=== PATIENT | female | born 1985 | race Caucasian/White ===

== ENCOUNTER → 2019-03-01 10:54 | Outpatient (CLI) | payer OTHER, SELFPAY ==
[2019-03-01 13:03] LABS: T4 Free Direct 0.87 ng/dL (0.76-1.46); Thyroid Stim Hormone (TSH) 1.58 uIU/mL (0.358-3.74)
[2019-03-01 13:21] LABS: Hemoglobin 8.8 g/dl (12.0-15.0); Mean Corp Hgb Conc 28.4 g/gl (32-36); Mean Corpuscular Hgb 18.1 pg (27.0-32.0); Mean Corpuscular Volume 63.9 fL (81-99); RBC Distribution Width CV 17.8 % (11.6-14.6); RBC Distribution Width SD 41.3 fl (35.1-43.9); Red Blood Count 4.85 M/mm3 (4.2-5.4); Scan Indicated on CBC? Y/N YES- FLAGS NOTED; White Blood Count 5.9 K/mm3 (4.4-11.0)
[2019-03-02 12:28] LABS: Thyroid Peroxidase AB 9 IU/mL (0-34)
== END ==
PROVIDERS: Visit Provider Obstetrics & Gynecology
DX: N92.0 Excessive and frequent menstruation with regular cycle (principal)
CPT/HCPCS: 36415; 84439; 84443; 85027; 86376

== ENCOUNTER → 2019-03-30 11:58 | Outpatient (CLI) | payer OTHER, SELFPAY ==
[2019-03-30 12:37] LABS: Hematocrit 34.9 % (37-47); Hemoglobin 10.6 g/dl (12.0-15.0); Mean Corp Hgb Conc 30.4 g/gl (32-36); Mean Corpuscular Hgb 21.9 pg (27.0-32.0); Platelet Count 184 K/mm3 (150-450); Red Blood Count 4.85 M/mm3 (4.2-5.4); White Blood Count 5.3 K/mm3 (4.4-11.0)
[2019-03-30 12:39] LABS: Scan Indicated on CBC? Y/N YES- FLAGS NOTED
[2019-03-30 13:20] LABS: Differential Comment SCANNED
== END ==
PROVIDERS: Visit Provider Obstetrics & Gynecology
DX: N92.0 Excessive and frequent menstruation with regular cycle (principal); Z86.2 Personal history of diseases of the blood and blood-forming organs and certain disorders involving the immune mechanism
CPT/HCPCS: 36415; 85027

== ENCOUNTER 2019-09-24 06:02 | Day surgery (SDC) | payer OTHER, SELFPAY ==
[2019-09-19 17:14] LABS: Hematocrit 31.8 % (37-47); Hemoglobin 8.8 g/dL (12.0-15.0); Mean Corp Hgb Conc 27.7 g/dL (32-36); Mean Corpuscular Hgb 18.8 pg (27.0-32.0); Mean Corpuscular Volume 68.1 fL (81-99); Mean Platelet Vol. 11.8 fl (6.2-12.0); Platelet Count 230 K/mm3 (150-450); RBC Distribution Width SD 40.8 fl (35.1-43.9); Red Blood Count 4.67 M/mm3 (4.2-5.4); White Blood Count 6.6 K/mm3 (4.4-11.0)
[2019-09-19 17:22] LABS: International Normalized Ratio 1.1; Prothrombin Time (Protime)PT. 13.6 SECONDS (11.7-14.9)
[2019-09-19 17:23] LABS: Partial Thromboplast Time 28.4 Seconds (24.1-36.2)
[2019-09-19 18:11] LABS: Creatinine, Serum 0.72 mg/dL (0.55-1.02); EST Glomerular Filtration Rate 99 mL/min (>60); Est Glom Filt Rate - Afr Amer 120 mL/min (>60)
--- NOTE | 2019-09-23 14:36 | PCM.HP.BLA ---
History and Physical Date of Admission: 09/24/19 Surgical History and Physical Nori Rivera, a 33 year old female 2 0 0 0 2, presents for Robotic hysterectomy, bilateral salpingectomy on September 24, 2019 at 7':30. -- Menorrhagia, Blood Loss Anemia, Adnexal Pulling Pain -- Having heavy periods getting worse over the past year. Periods are monthly lasting 5-6 days, LMP 01/30/19. CD 2-4 are the heaviest. Wears a super plus tampon and a pad for overflow, changing every hour apprx 8 x per day; bleeds onto her bed at night. Takes one Midol for cramping once daily. Quarter sized clots heavy days. Apprx a year ago, tried 3 months of an ocp, which made no difference, unsure name of ocp. Intolerant to iron supplement. Hx C/S x 2, BTO. No other abdominal surgeries. Hgb 8.8 g/dl at last visit. Thyroid testing WNL. UTERUS: 10.5 x 7.4 x 6.3 cm.;ENDOMETRIAL ECHO: 0.55 cm and is difficult to delineate from surrounding uterine tissue; RIGHT OVARY: 4.6 x 2.5 x 2.5 cm and is polycystic; LEFT OVARY: 3.6 x 2.3 x 2.9 cm and is polycystic; OTHER PERTINENT FINDINGS: Directly adjacent and lateral to the ovary is a fluid filled structure that is 1.4 cm in width. This appears to be fluid within the Infundibulum of the fallopian tube, as you can trace the structure back to the uterus. Very heavy periods. It is located in the vagina. Severity is getting worse; It is relieved by nothing. Associated signs and symptoms are anemia. Additional comments are: OCP trial unsucessful about a year ago. MEDICATIONS HISTORY: Patient is also takin. Lexapro 20 mg tablet, One tablet by mouth daily 2. omeprazole 40 mg capsule,delayed release, One capsule by mouth once daily ALLERGIES: NKDA Infections - Chicken pox Illnesses - none Accidents - no injuries of consequence Hospitalizations - Childbirth and see surgery Review of Systems: GENERAL - Denies fever, or chills SKIN - Denies skin changes EYES - Denies visual changes EARS - Denies difficulty hearing NOSE - Denies nasal congestion or bleeding MOUTH - Denies sore throat or difficulty swallowing NECK - Denies pain or swelling RESPIRATORY - Denies shortness of breath or wheezing CARDIOVASCULAR - Denies palpitations or chest pain GASTROINTESTINAL - Denies nausea, vomiting, diarrhea, constipation GENITOURINARY - Denies dysuria, frequency of urination, incontinence of urine MUSCULOSKELETAL - Denies joint or muscle pain NEUROLOGICAL - Denies localized numbness or weakness PSYCHIATRIC - Denies depression or anxiety ENDOCRINE - Denies heat or cold intolerance, weight loss or gain HEMATO-IMMUNOLOGIC - Denies excesive bleeding with cuts SOCIAL HISTORY: Alcohol Use - socially Smoking - denies smoking Diet - moderate, balanced diet Lifestyle - low stress lifestyle and Exercise - regular Seat Belt Use - always Employer - [employer] Job Description - Kitchen help Illicit Drug Use - denies use of street drugs Sexual Activity - Residence - lives with Hours Worked - 20 [address]K Spouse-Sig Other Name - Wilfredo Spouse-Sig Other Occupation - [employer] Children Name(s) - Felix Amador (ARNULFO) Control - tubal FAMILY HISTORY: Father: Hypertension. Maternal Grandfather: Heart Disease. Paternal Grandmother: DM II. Paternal Grandfather: of massive heart attack and Heart Disease. MENSTRUAL HISTORY: LMP Known?- DefiniteAmount/Duration - 5-6 DAYS, Regularity - Regular, Frequency - monthly days, LMP - 09/05/19, Age Onset Menarche - 12 PAST PREGNANCIES: Total Pregnancies - 2; Full Term Pregnancies - 2; Premature - 0; Abortions, Induced - 0; Abortions, Spontaneous - 0; Ectopics - 0; Multiple Births - 0; Living Children - 2 SURGICAL HISTORY: 1. 10/07/2009 P C/S ; Dr Patton - FTP 2. 05/26/2012 /BTO ; Lakshmi Patton M.D. - 3. [place] Teeth Removal, 2004 ; - PHYSICAL EXAM BP- 134/84 Sitting, Right arm, regular cuff Weight- 236.16451 lbs Height- 65.25 inch BMI:39.05 CONSTITUTIONAL - NAD, well nourished, and well developed HEENT - Normocephalic, PERRLA, EOMI NECK - no nuchal rigidity EXTREMITIES - No edema or calf tenderness NEUROLOGICAL - Cranial nerves II-XII grossly intact PSYCHIATRIC - alert, oriented to time, place, and person, mood appropriate and affect appropriate External Genital Vagina - non-tender without lesions Urethra/Urethral Meatus - non-tender Bladder - non-tender Vagina - vaginal hoang are pink and moist without loss of rugae and no evidence of atropy Cervix - without cervical motion tenderness and has normal size and features without evident lesions Uterus - mobile, no tenderness and RV RF. Adnexa - clear without masses or tenderness ASSESSMENT/PLAN: 1. Excessive Bleeding In The Premenopausal Period Discussed diff dx of bleeding. Hgb 8.8 g/dl at last visit. Thyroid testing WNL. Advised of all options for treatment: hormonal contraception (States OCP did not help); trial of Liletta IUD ; hysteroscopy D and C endometrial ablation. Brochures given to read and consider; Abnormal Uterine Bleeding; Liletta IUD. Blaire endometrial abliation (with table reviewing all options). Decided to proceed with RAVH/BS. Discussed R,B and A of Robotic hysterectomy and bilateral salpingectomy and all questions answered.
[2019-09-24] VITALS (14 sets, daily range): BP systolic 114–144; BP diastolic 62–81; PULSE 63–79; RESP 15–18; TEMP 36.3–36.7; O2SAT 94–100; BMI 38.4
--- NOTE | 2019-09-24 | HYST_PTH ---
PATIENT: JAY HOUSE LOC: [facility] U#:[id number] AGE/SX: 33/F ROOM: RE09/24/[address]: Dr. Gm Marcano MD : [id number] BED: DIS: 09/25/2019 SPEC #: [id number] RECD: 09/24/19 14:05 STATUS: JAQUELINE TUYET #: [id number] MARIO: 09/24/19 00:[address]: Gm Marcano DEPT: SURGICAL PATHOLOGY RECD BY: Capo Sood ENTERED: 09/24/19 14:06 SP TYPE: HYSTERECT OTHR DR: Nikole Suero PA-C Tissues: Uterus, NOS Procedures: Surgery Specimen Level V HEADER OPERATION: Lab robotic hysterectomy, bilateral salpingectomy PRE-OP DIAGNOSIS: Excessive bleeding in premenopausal period TISSUE SUBMITTED: Uterus and bilateral fallopian tubes MICROSCOPIC DIAGNOSIS Uterus and bilateral fallopian tubes, hysterectomy and bilateral salpingectomy: Cervix - chronic inflammation. Endometrium - proliferative endometrium. Myometrium - intramural and subserosal leiomyomas (largest measuring 0.5 cm in greatest dimension). Bilateral fallopian tubes - no pathologic diagnosis. Left paratubal cysts. SJ:rg 09/25/19 MICROSCOPIC DESCRIPTION Slides are reviewed. GROSS DESCRIPTION Received in fixative is one container labeled with the patient's name and designated uterus and bilateral fallopian tubes. The specimen consists of a hysterectomy specimen consisting of uterus with cervix and attached bilateral fallopian tubes. The uterus with cervix weighs 159 gm and measures 11 x 7 x 5.5 cm. The serosal surface is focally ragged. A small subserosal lesion is also noted. The ectocervical mucosa is unremarkable. The external os is oval in contour. The endocervical canal measures 3.5 cm in length and the endocervical mucosa is unremarkable. The triangular endometrial cavity measures 5.5 cm in length and 3.5 cm in width. The endometrium is machuca, congested without any mass lesion and measures 0.3 cm in thickness. Sections through the myometrial wall reveal two small nodular intramural and one subserosal masses. The largest mass measures 0.5 cm in greatest dimension. The uterine wall measures up to 3 cm in thickness. The right fallopian tube measures 9.5 cm in length and up to 0.8 cm in diameter. The fimbrial end is identified. The proximal end of the fallopian tube shows a Filshie clip which appears intact. The left fallopian tube measures 9 cm in length and 0.8 cm in diameter. The fimbrial end is identified. Three paratubal cysts are noted measuring 0.5 and 1 cm in greatest dimension. It is interrupted in the middle consistent with previous tubal occlusion. No Filshie clip is noted in the left fallopian tube. Sections of both fallopian tubes reveal unremarkable cut surfaces. Call Centre Supervisor sections are submitted in nine cassettes as follows: 1 - anterior cervix, 2 - posterior cervix, 3 & 4 - anterior uterine wall, 5 & 6 - posterior uterine wall, 7 - nodular masses, entirely submitted, 8 - right fallopian tube, 9 - left fallopian tube and paratubal cyst. / DMITRIY:janki 09/24/19 TC:1 CPT: 70706
[2019-09-24] MEDS: Lactated Ringers 1,000 ML 100 ML IV ×2 (06:45→06:48)
[2019-09-24 06:49] LABS: Internal QC Validated? YES +Cl - CLEAR BKGD; Pregnancy, Urine Negative Negative
[2019-09-24] MEDS: Ropivacaine 0.5% 30 ML Vial (08:20)
--- NOTE | 2019-09-24 10:22 | OP.PCM_ITS ---
Report of Operation Date of Procedure: 09/24/19 Pre-Operative Diagnosis: Menorrhagia, Blood Loss Anemia, Adnexal Pulling Pain Post-Operative Diagnosis: Menorrhagia, Blood Loss Anemia, Adnexal Pulling Pain Surgery/Procedure Performed:: Robotic Assisted Vaginal Hysterectomy and Bilateral Salpingectomy Description of Surgical Findings:: 12 cm uterus with normal-appearing fallopian tubes and ovaries. Evidence of prior bilateral tubal occlusion with Filshie clips. look out tower fire watcher: Bridget Armando Type of Anesthesia:: General - Endotracheal Anesthesiologist: Yadiel Gr Specimen's removed: Uterus and bilateral fallopian tubes Drains: Echols to straight drain Estimated Blood Loss (mL): Minimal Fluids Replaced: Crystalloid Description of Procedure: Surgeon: Gm Marcano MD, FACOG Indication: This is a 33 year old patient who has been having problems with extremely heavy periods, blood loss anemia, and a pulling sensation in her lower pelvis. Conservative measures have not been helpful. The patient has been counseled regarding the risks, benefits and alternatives of this procedure including the possibility of bleeding, infection, and injury to surrounding structures such as bowel bladder and all questions were answered. She under stands that if BSO is needed that she will need to be on HRT for an indefinite period of time. Procedure: Pt taken to the operating room where, after induction of general anesthesia, the patient was prepped and draped in the usual sterile fashion and placed on a non-slip Huggy-u-vac device. Trendelenburg test was satisfactory. Bladder was drained of urine with a Echols catheter which was left in place. Anterior cervix grasped and cervix was dilated to about 3-4 mm. Uterus sounded to 11 cms. 0-Vicryl suture was placed at the 3:00 and 9:00 position of the cervix. A small Advincula Smoke Tester Uterine Manipulator was then placed in the uterus and attention was turned to the laparoscopic portion of the procedure. Ropivocaine 0.5% was injected approximately 2-3 cm superior to the umbilicus and an 8 mm robotic camera port was introduced directly with intraperitoneal placement confirmed with CO2 insufflation. 8 mm robotic side ports were introduced under direct visualization approximately 11 cm lateral and 2 cm inferior to the umbilical port. A 5 mm left upper quadrant port was introduced and airseal insufflation with CO2 was started. The above findings were noted. Robot was docked without difficulty and attention turned to the robotic portion of the procedure. Approximately 30 cc of Ropivicaine was used. Bilateral mesosalpinx were ligated with 35 keith bipolar coagulation to the level of the round ligament. The posterior aspect of the cervix was identified and then opened for about 1 cm using 25 watt monopolar cautery. Bladder flap was opened and divided to the level of the round ligaments using monopolar cautery. Progressive bites were then ligated on each side of the cervix with 35 keith bipolar cautery to the uterine arteries. The anterior vaginal mucosa was entered and cervix circumscribed with monopolar cautery. Uterus and attached tubes were removed through the vagina. Vaginal cuff was closed first with 0- Vicryl Gordon stitches placed at each angle followed by closure of the mid-cuff with 0-Monocryl V-lock suture in two layers. Pelvis was copiously irrigated with saline and the right and left ureter was noted to peristalse. Robot was undocked and trocars were removed with as much gas as possible. Incisions were closed with 4-0 Monocryl subcuticular sutures and incisions covered with steri-strips. The patient tolerated the procedure well and was taken to the recovery room in satisfactory condition. Sponge, instruments and needle counts were all correct. There were no apparent complications of the surgery. Cefotan 2 gms IV was given prior to the procedure. Estimated Blood Loss: Minimal Specimen to Pathology: Uterus and bilateral fallopian tubes Grafts/Implants Used: None - Complications None - Admit VTE Documentation VTE Present on Admission: Yes VTE Mechan Device Prophylaxis: SCD's VTE Pharm Prophylaxis ordered?: Yes
--- NOTE | 2019-09-24 10:26 | DCINST_ITS ---
Discharge Diet: No Restrictions Discharge Activity: Return to Normal Activity, May Not Drive - while taking narcotic pain medications., May Shower, May Take a Tub Bath May resume sexual activity in: 6-8 weeks Call your doctor if your incision/area has: Continuous Slow Oozing, Sudden Inc reased Bleeding, Increased Pain/ Swelling, Increased Redness, Foul Smelling Discharge Call your doctor if you observe: Fever of 101 or Higher, Inability to urinate, Inability to have a bowel movement, Using more than one pad per hour Allergies/Adverse Reactions: Allergies No Known Allergies Allergy (Verified 09/24/19 06:29) Medications to take at Discharge Escitalopram Oxalate [Lexapro] 20 mg PO DAILY 09/17/19 Omeprazole 40 mg PO DAILY 09/17/19 Docusate Sodium [Colace] 100 mg PO BID PRN PRN #60 cap 09/24/19 Oxycodone [Oxyir] 5 mg PO Q6H PRN PRN 7 Days #14 tablet 09/24/19 The following prescriptions were given: Docusate Sodium [Colace] 100 mg PO BID PRN PRN #60 cap PRN Reason: Constipation Transmission Status: Pending to [facility] Oxycodone [Oxyir] 5 mg PO Q6H PRN PRN 7 Days #14 tablet PRN Reason: Pain Score 6-10/10 Transmission Status: [facility] Primary Care Physician: Nikole Suero PA-C [Primary Care Provider] - Test Results: Test results from this visit will be discussed in further detail at your follow- up appointment, if applicable. Please Follow Up With: Gm Marcano MD When: 2 to 3 weeks
[2019-09-24] MEDS: Ketorolac 30 MG/ML Syringe IV ×3 (12:02→23:51)
[2019-09-24] MEDS: Dextrose 5%-Lactated Ringers 1,000 ML 150 ML IV ×2 (13:11→19:46)
[2019-09-24] MEDS: oxyCODONE 5 MG Tablet PO ×2 (15:30→19:53)
[2019-09-24] MEDS: Acetaminophen 500 MG Tablet 1000 MG PO (15:30)
[2019-09-24] MEDS: Enoxaparin 30 MG/0.3 ML Syringe SC (17:49)
[2019-09-24] MEDS: 0.9% Saline Lock 10 ML Syringe IV (23:55)
[2019-09-25] MEDS: oxyCODONE 5 MG Tablet PO ×2 (01:50→09:26)
[2019-09-25 01:55] VITALS: BP 136/71; PULSE 71; RESP 16; TEMP 36.6; O2SAT 96
[2019-09-25] MEDS: Dextrose 5%-Lactated Ringers 1,000 ML 150 ML IV (02:49)
[2019-09-25] MEDS: Ketorolac 30 MG/ML Syringe IV (05:44)
[2019-09-25] MEDS: 0.9% Saline Lock 10 ML Syringe IV (05:44)
[2019-09-25 05:58] LABS: Hematocrit 28.3 % (37-47); Hemoglobin 7.7 g/dL (12.0-15.0); Mean Corp Hgb Conc 27.2 g/dL (32-36); Mean Corpuscular Hgb 19.3 pg (27.0-32.0); Mean Corpuscular Volume 70.8 fL (81-99); Mean Platelet Vol. 11.7 fl (6.2-12.0); Platelet Count 150 K/mm3 (150-450); RBC Distribution Width CV 17.4 % (11.6-14.6); RBC Distribution Width SD 44.4 fl (35.1-43.9); White Blood Count 6.4 K/mm3 (4.4-11.0)
[2019-09-25 07:12] LABS: Creatinine, Serum 0.86 mg/dL (0.55-1.02); EST Glomerular Filtration Rate 81 mL/min (>60); Est Glom Filt Rate - Afr Amer 98 mL/min (>60); Estimated Creatinine Clearance 87.92 ml/min
[2019-09-25 09:39] VITALS: BP 137/70; PULSE 76; RESP 18; TEMP 36.6; O2SAT 98
--- NOTE | 2019-09-25 09:52 | PCM.PN.OB ---
Subjective: Patient without complaints. Tolerating diet well. Positive flatus. Minimal vaginal bleeding. Denies any orthostatic symptoms. Ready to go home. - Physical Exam Vitals/I&O's: Vital Signs Temp Pulse Resp BP Pulse Ox 97.8 F 76 18 137/70 H 98 09/25/19 09:39 09/25/19 09:39 09/25/19 09:39 09/25/19 09:39 09/25/19 09:39 Oxygen Delivery Method Room Air Weight: 237 lb 14.06 oz Body Mass Index (BMI) 38.4 Intake and Output for Last 24 Hours 09/23/19 09/24/19 09/25/19 23:59 23:59 23:59 Intake Total 3537.5 / 5037.5 4837.5 / 4837.5 Output Total 890 / 1940 3050 / 3050 Balance 2647.5 / 3097.5 1787.5 / 1787.5 Comment: Wounds CDI. Good urine output. Hemoglobin and creatinine okay. Laboratory Results 09/25/19 05:38: WBC 6.4, RBC 4.00 L, Hgb 7.7 L, Hct 28.3 L, MCV 70.8 L, MCH 19.3 L, MCHC 27.2 L, RDW Std Deviation 44.4 H, RDW Coeff of Michael 17.4 H, Plt Count 150, MPV 11.7 09/25/19 05:38: Creatinine 0.86, Estim Creat Clear Calc 87.92, Est GFR (MDRD) Af Amer 98, Est GFR (MDRD) Non-Af 81 Current Medications Acetaminophen (Tylenol) 1,000 mg PO Q8H PRN PRN PRN Reason: Pain Score 1-3/10 or Fever Last Admin: 09/24/19 15:30 Dose: 1,000 mg Documented by: Docusate Sodium (Colace) 100 mg PO BID PRN PRN PRN Reason: Constipation Escitalopram Oxalate (Lexapro) 20 mg PO DAILY RAMÍREZ Last Admin: 09/25/19 09:25 Dose: Not Given Documented by: Hydromorphone HCl (Dilaudid Inj) 0.5 mg IV Q3H PRN PRN PRN Reason: Pain Score 4-10/10 Dextrose/Lactated Ringer's () 1,000 mls @ 150 mls/hr IV .Q6H40M [facility] Last Infusion: 09/25/19 09:04 Dose: Infused Documented by: Sodium Chloride () 250 mls @ 15 mls/hr IV .[id number] PRN PRN Reason: Saline Flush Sodium Chloride () 250 mls @ 15 mls/hr IV .[id number] PRN PRN Reason: Additional IVPB Infusion Influenza Virus Vaccine Quadrival (Flucelvax /Fluzone ) 0.5 ml IM .ONCE ONE Stop: 09/25/19 10:01 Last Admin: 09/25/19 09:35 Dose: 0.5 ml Documented by: Ketorolac Tromethamine (Toradol) 30 mg IV Q6H [facility] Stop: 09/29/19 18:01 Last Admin: 09/25/19 05:44 Dose: 30 mg Documented by: Ondansetron HCl (Zofran) 4 mg IV Q4H PRN PRN PRN Reason: NAUSEA Oxycodone HCl (Oxyir) 5 mg PO Q4H PRN PRN PRN Reason: Pain Score 4-10/10 Last Admin: 09/25/19 09:26 Dose: 5 mg Documented by: Pantoprazole Sodium (Protonix) 40 mg PO DAILY [facility] Last Admin: 09/25/19 09:25 Dose: Not Given Documented by: Simethicone (Mylicon) 80 mg PO [facility] Last Admin: 09/25/19 09:36 Dose: 80 mg Documented by: Sodium Chloride () 10 - 40 ml IV UD PRN PRN Reason: SALINE FLUSH Last Admin: 09/25/19 05:44 Dose: 10 ml Documented by: Medical Necessity - Tobacco Use Smoking Status: Never smoker Tobacco Use: Non-smoker Assessment/Plan Doing well postoperative day #1 status post robotic assisted vaginal hysterectomy and bilateral salpingectomy. Will release to home with routine instructions. Instructed to resume iron at home for chronic blood loss anemia from menorrhagia.
== END 2019-09-25 10:37 | disposition home or self-care (01) ==
LOC: SDC 06:02 → AC 06:02 → MS3 09-25 07:53
PROVIDERS: Anesthesiology; Family Provider Family Medicine; PCP Family Medicine; Referring Provider Obstetrics & Gynecology; Visit Provider Obstetrics & Gynecology
PROC: 0UT90ZZ Resection of Uterus, Open Approach (ICD-10-PCS; CPT 58552; principal; 2019-09-24 07:40)
DX: N92.4 Excessive bleeding in the premenopausal period (principal); D50.0 Iron deficiency anemia secondary to blood loss (chronic); D25.1 Intramural leiomyoma of uterus; D25.2 Subserosal leiomyoma of uterus; N83.8 Other noninflammatory disorders of ovary, fallopian tube and broad ligament; Z23 Encounter for immunization
CPT/HCPCS: 00840; 58552; 90471; S2900; 36415; 81025; 82565; 85027; 85610; 85730; 86850; 86900; 86901; 88307; 99251; J7120; 90686; A4216; G0463; J2405

== ENCOUNTER 2025-02-24 18:36 | Emergency (ER) | payer OTHER, SELFPAY ==
[2025-02-24 18:38] VITALS: BP 139/88; PULSE 72; RESP 16; TEMP 36.7; O2SAT 100; BMI 33.7
--- NOTE | 2025-02-24 21:45 | EX.ED.VIS.EY ---
HPI History of Present Illness Chief Complaint: Eye Problem Informant: patient Narrative Narrative: Awake and left eye irritation with burning sensations. She slept with her contact lens in. She had her eyes checked 2 months ago. These are monthly disposables. She took, she wears glasses. Denies visual changes. Denies foreign body sensation. Prior similar symptoms: No PFSH PFSH Medical History (Updated 02/24/25 @ 21:53 by Faustina Chapman) Anxiety Home Medications ?Medication ?Instructions ?Recorded ?Last Taken ?Type escitalopram oxalate 20 mg tablet 20 mg PO DAILY 09/17/19 Unknown History omeprazole 40 mg capsule,delayed 40 mg PO DAILY 09/17/19 09/24/19 05:00 History release Allergy/AdvReac Type Severity Reaction Status Date / Time No Known Allergies Allergy Verified 02/24/25 18:40 Surgical History (Updated 02/24/25 @ 21:53 by Faustina Chapman) H/O section H/O: hysterectomy Social History Smoking Status: Never smoker ROS ROS ED Constitutional Constitutional ED: Denies fever(s) Eyes Eyes: Reports other Details: Left eye redness Cardiovascular Cardiovascular: Denies chest pain Respiratory/Chest Respiratory/Chest: Denies cough Gastrointestinal Gastrointestinal: Denies diarrhea or vomiting Musculoskeletal Musculoskeletal: Denies none Integumentary Denies rash or wounds Neurologic Neurologic: Denies weakness EXAM Physical Exam Const Vital Signs: 02/24/25 18:38 Temperature 98.1 F Temperature Source Oral Pulse Rate 72 Respiratory Rate 16 Blood Pressure 139/88 H Blood Pressure Mean 105 Pulse Ox 100 Oxygen Delivery Method Room Air Positive well nourished and well developed General Appearance ED: well developed HEENT normocephalic and atraumatic Eyes Eyes Narrative: Left eye Lids everted no foreign body noted moist Q-tip brown along the margins. Injected sclera throughout. Slit lamp examination after tetracaine expiration 12 o'clock position. Visual acuity 20/20 OD, 20/20 OS, 20/13 OU with glasses. Neck full ROM Resp normal respiratory effort and normal air movement Cardio regular rate and regular rhythm GI soft to palpation Extremity normal to inspection and full ROM Neuro oriented x3 Skin no rashes or lesions noted and no wounds MDM MDM MDM Narrative Medical decision making narrative: Interventions / MDM: Differential diagnosis: Chemical conjunctivitis contact lens wearer, corneal abrasion Diagnosis considered but do not suspect: No corneal ulcer noted. My EKG interpretation: N/A Imaging independently reviewed and interpreted by myself: N/A External documents reviewed: N/A Test considered but not ordered:N/A ED course: Contact lens worse left in contacts and conjunctivitis. Slit-lamp examination uptake at 12 o'clock position. Continue to leave contacts out, Cipro drops essentially patient to use 3 times a day. She will contact her eye doctor. All questions were answered. Patient Re-evaluation: stable Disposition discussed with patient/family/significant other: Patient Case discussed with consulting clinician: N/A This note was generated with [employer] dictation software. It may contain incorrect words, spelling, and punctuation that were not noted in checking the note before signing. Discharge Plan Triage Chief Complaint: Eye Problem ED Provider: Richard Rajput Dx/Rx/DC Orders Clinical Impression: Conjunctivitis, Wears contact lenses, Abrasion, corneal Instructions: ED Conjunctivitis, Nonspecific, ED Corneal Abrasion Prescriptions: No Action omeprazole 40 MG capsule,delayed release(DR/EC) 40 mg PO DAILY escitalopram oxalate 20 MG tablet 20 mg PO DAILY Primary Care Provider: Nikole Suero Referrals: Nikole Suero [facility] [Primary Care Provider] - Activity Restrictions/Additional Instructions: Avoid contacts. Visual acuity with glasses 20/20 each eye. Use Cipro drops 3 times a day. Noted abrasion 12 o'clock position of your left eye. Follow-up with your eye doctor this week for reevaluation. Print Language: Romanian Disposition Disposition: Home, Self Care Discharge Date/Time: 02/24/25 21:54
[2025-02-24] MEDS: Ciprofloxacin 0.3% 2.5ml Bottle 1 DRP LEFT EYE (21:51)
[2025-02-24] MEDS: Tetracaine 0.5% Ophthalmic Bottle 1 DRP OPHTHALMIC (21:51)
[2025-02-24] MEDS: Fluorescein 1 MG STRIP 1 STRIP OPHTHALMIC (21:51)
[2025-02-24 21:53] VITALS: BP 133/94; PULSE 69; RESP 18; TEMP 36.8; O2SAT 100
== END 2025-02-24 21:54 | disposition home or self-care (01) ==
PROVIDERS: Emergency Provider Emergency Medicine; PCP Family Medicine; Visit Provider Emergency Medicine
DX: H18.822 Corneal disorder due to contact lens, left eye (principal); H10.9 Unspecified conjunctivitis
CPT/HCPCS: 99283